=== PATIENT | female | born 1975 | race Caucasian/White ===

== ENCOUNTER → 2020-10-17 10:05 | Outpatient (BNVA) | payer BC, SELFPAY | PROVIDERS: Referring Provider Internal Medicine; Visit Provider Internal Medicine | DX: E03.9 Hypothyroidism, unspecified (principal); E04.9 Nontoxic goiter, unspecified; E06.3 Autoimmune thyroiditis | CPT/HCPCS: 99204 ==

== ENCOUNTER 2020-11-04 07:21 | Outpatient (CLI) | payer BC, SELFPAY ==
--- NOTE | 2020-11-04 07:15 | US_ITS ---
WS: [id number] ULTRASOUND THYROID TECHNIQUE: Ultrasound of the thyroid. CLINICAL INFORMATION: goiter, dysphagia COMPARISON: None. FINDINGS: Thyroid: Right and left thyroid lobes are normal in size with heterogeneous echotexture. No dominant thyroid nodules are present. Increased vascularity Right thyroid lobe: 3.9 cm x 1.2 cm x 1.6 cm Left thyroid lobe: 3.1 cm x 0.9 cm x 1.0 cm. Isthmus: 0.3 mm. Cervical lymphadenopathy: None. US/US thyroid 46702 IMPRESSION: 1. Heterogeneous thyroid echotexture with increased vascularity suspicious for thyroiditis. Recommend correlation with thyroid function studies. 2. No nodules to target for biopsy.
== END 2020-11-04 07:22 | disposition home or self-care (01) ==
LOC: US 07:23
PROVIDERS: PCP Internal Medicine; Visit Provider Internal Medicine
DX: E04.9 Nontoxic goiter, unspecified (principal); R13.10 Dysphagia, unspecified
CPT/HCPCS: 76536

== ENCOUNTER → 2021-02-05 09:05 | Outpatient (BNVA) | payer BC, SELFPAY | PROVIDERS: PCP Internal Medicine; Visit Provider Internal Medicine Rheumatology | DX: M19.041 Primary osteoarthritis, right hand (principal); M19.042 Primary osteoarthritis, left hand; Z79.899 Other long term (current) drug therapy; R76.8 Other specified abnormal immunological findings in serum; M79.7 Fibromyalgia | CPT/HCPCS: 99204 ==

== ENCOUNTER 2021-02-05 10:43 | Outpatient (CLI) | payer BC, SELFPAY ==
--- NOTE | 2021-02-05 10:50 | XR_ITS ---
WS: [id number] Exam: XR foot LT min 3V* [id number] Date/Time of Exam: 02/05/2021 11:00 AM Reason For Exam: Z79.899 - Other vermin exterminator (current) drug therapy No fracture or dislocation. There is been amputation of the distal end of the second toe. No soft tis analy foreign bodies are seen. XR/XR foot LT min 3V* [id number] IMPRESSION: 1. No fracture or bone destruction. 2. Amputation of the distal tip of the second toe.
--- NOTE | 2021-02-05 10:50 | XR_ITS ---
WS: [id number] Exam: XR hand LT min 3V* [id number] Date/Time of Exam: 02/05/2021 11:00 AM Reason For Exam: Z79.899 - Other bed bug exterminator (current) drug therapy Findings: No fractures, soft tissue swelling, or unusual calcifications are noted. The hand shows normal bony alignment. There is no irregularity of the bony architecture. XR/XR hand LT min 3V* [id number] IMPRESSION: Normal left hand.
--- NOTE | 2021-02-05 10:50 | XR_ITS ---
WS: [id number] Exam: XR foot RT min 3V* [id number] Date/Time of Exam: 02/05/2021 11:00 AM Reason For Exam: Z79.899 - Other custodial (current) drug therapy Findings: The foot was examined in multiple views and reveals no fractures or displacements of bone. No bony a nomalies are noted. The bony elements are in adequate alignment. The joint spaces are smooth and eq uidistant. XR/XR foot RT min 3V* [id number] IMPRESSION: Negative right foot.
--- NOTE | 2021-02-05 10:50 | XR_ITS ---
WS: [id number] Exam: XR hand RT min 3V* [id number] Date/Time of Exam: 02/05/2021 11:00 AM Reason For Exam: Z79.899 - Other intermodal customer service (current) drug therapy Findings: No fractures, soft tissue swelling, or unusual calcifications are noted. The hand shows normal bony alignment. There is no irregularity of the bony architecture. XR/XR hand RT min 3V* 17112 IMPRESSION: Normal right hand.
[2021-02-05 11:36] LABS: Basophils % 0.4 %; Eosinophils % 0.6 %; Hematocrit 45.4 % (37.0-47.0); Hemoglobin 14.6 g/dL (11.5-15.3); Lymphocytes # 1.7 10^3/uL (0.8-4.8); Lymphocytes % 32.8 %; Mean Corpuscular HGB Conc 32.2 g/dL (30.0-36.0); Mean Corpuscular Hemoglobin 29.7 pg (28.0-34.0); Mean Corpuscular Volume 92.5 fL (81-99); Mean Platelet Volume 9.6 fL (7.4-10.4); Monocytes # 0.3 10^3/uL (0.2-0.9); Neutrophils # 3.08 10^3/uL (1.8-7.7); Neutrophils % 59.8 %; Nucleated Red Blood Cells % 0 %; Platelet Count 264 10^3/cmm (130-400); Red Blood Count 4.91 10^6/uL (4.1-5.3); Red Cell Distribution Width 12.3 % (12.1-15.1); White Blood Count 5.2 10^3/uL (4.0-10.0)
[2021-02-05 12:03] LABS: Alanine Aminotransferase 45 U/L (0-33); Albumin Level 4.4 g/dL (3.5-5.2); Alkaline Phosphatase 83 IU/L (35-105); Aspartate Amino Transferase 29 U/L (0-32); C Reactive Protein 1.7 mg/L (0.0-4.9); Globulin 2.9 g/dL (1.3-4.6); Glomerular Filtration Rate 134.7 mL/min (90-130); Total Bilirubin 0.4 mg/dL (0.15-1.2); Total Protein 7.3 g/dL (6.6-8.7)
[2021-02-05 12:16] LABS: 25 Hydroxy Vitamin D 26 ng/mL (30-100)
[2021-02-05 13:30] LABS: Erythrocyte Sedimentation Rate 13 mm/hr (0-15)
== END 2021-02-05 10:44 | disposition home or self-care (01) ==
PROVIDERS: PCP Internal Medicine; Visit Provider Internal Medicine Rheumatology
DX: M19.90 Unspecified osteoarthritis, unspecified site (principal); Z79.899 Other long term (current) drug therapy
CPT/HCPCS: 36415; 73130; 73630; 80076; 82306; 82565; 85025; 85651; 86140

== ENCOUNTER → 2021-04-07 14:10 | Outpatient (BNVA) | payer BC, SELFPAY | PROVIDERS: PCP Internal Medicine; Visit Provider Internal Medicine Rheumatology | DX: M25.50 Pain in unspecified joint (principal); M19.041 Primary osteoarthritis, right hand; M19.042 Primary osteoarthritis, left hand; R76.8 Other specified abnormal immunological findings in serum; M79.7 Fibromyalgia | CPT/HCPCS: 99214 ==

== ENCOUNTER → 2021-07-21 14:03 | Outpatient (BNVA) | payer BC, SELFPAY | PROVIDERS: PCP Internal Medicine; Visit Provider Internal Medicine Rheumatology | DX: M35.05 Sjogren syndrome with inflammatory arthritis (principal); M19.041 Primary osteoarthritis, right hand; M19.042 Primary osteoarthritis, left hand; M79.7 Fibromyalgia; Z79.899 Other long term (current) drug therapy; Z71.85 Encounter for immunization safety counseling | CPT/HCPCS: 99214 ==

== ENCOUNTER 2021-07-21 15:25 | Outpatient (CLI) | payer BC, SELFPAY ==
[2021-07-21 15:42] LABS: Basophils % 0.7 %; Eosinophils # 0.1 10^3/uL (0.0-0.8); Hematocrit 46.1 % (37.0-47.0); Hemoglobin 14.9 g/dL (11.5-15.3); Lymphocytes # 2.1 10^3/uL (0.8-4.8); Lymphocytes % 35.9 %; Mean Corpuscular HGB Conc 32.3 g/dL (30.0-36.0); Mean Corpuscular Volume 92.8 fl (81-99); Monocytes # 0.4 10^3/uL (0.2-0.9); Monocytes % 6.4 %; Neutrophils # 3.23 10^3/uL (1.8-7.7); Neutrophils % 55.8 %; Nucleated Red Blood Cells % 0 %; Platelet Count 274 10^3/cmm (130-400); Red Blood Count 4.97 10^6/uL (4.1-5.3); Red Cell Distribution Width 12.4 % (12.1-15.1); White Blood Count 5.8 10^3/uL (4.0-10.0)
[2021-07-21 16:06] LABS: Alanine Aminotransferase 20 U/L (0-33); Albumin Level 4.4 g/dL (3.5-5.2); Alkaline Phosphatase 77 IU/L (35-105); Aspartate Amino Transferase 19 U/L (0-32); C Reactive Protein 0.6 mg/L (0.0-4.9); Glomerular Filtration Rate 68.3 mL/min (90-130); Total Bilirubin 0.3 mg/dL (0.15-1.2); Total Protein 7.4 g/dL (6.6-8.7)
== END 2021-07-21 15:26 | disposition home or self-care (01) ==
LOC: LAB 15:27
PROVIDERS: PCP Internal Medicine; Visit Provider Internal Medicine Rheumatology
DX: M19.90 Unspecified osteoarthritis, unspecified site (principal); Z79.899 Other long term (current) drug therapy
CPT/HCPCS: 36415; 80076; 82565; 85025; 86140

== ENCOUNTER 2021-11-18 14:46 | Outpatient (CLI) | payer BC, SELFPAY ==
[2021-11-18 16:14] LABS: Basophils % 0.6 %; Eosinophils # 0.1 10^3/uL (0.0-0.8); Eosinophils % 1.8 %; Hematocrit 41.8 % (37.0-47.0); Hemoglobin 13.5 g/dL (11.5-15.3); Lymphocytes # 1.7 10^3/uL (0.8-4.8); Lymphocytes % 33.6 %; Mean Corpuscular HGB Conc 32.3 g/dL (30.0-36.0); Mean Corpuscular Hemoglobin 30.8 pg (28.0-34.0); Mean Corpuscular Volume 95.2 fl (81-99); Monocytes # 0.4 10^3/uL (0.2-0.9); Monocytes % 7.7 %; Neutrophils # 2.77 10^3/uL (1.8-7.7); Neutrophils % 56.1 %; Nucleated Red Blood Cells % 0 %; Platelet Count 284 10^3/cmm (130-400); Red Blood Count 4.39 10^6/uL (4.1-5.3); White Blood Count 4.9 10^3/uL (4.0-10.0)
[2021-11-18 16:57] LABS: 25 Hydroxy Vitamin D 31 ng/mL (30-100); Alanine Aminotransferase 38 U/L (0-33); Albumin Level 4.4 g/dL (3.5-5.2); Alkaline Phosphatase 79 IU/L (35-105); Aspartate Amino Transferase 28 U/L (0-32); Globulin 2.8 g/dL (1.3-4.6); Glomerular Filtration Rate 108.6 mL/min (90-130); Thyroid Stimulating Hormone 2.02 uIU/mL (0.27-4.20); Total Bilirubin 0.2 mg/dL (0.15-1.2); Total Protein 7.2 g/dL (6.6-8.7); Vitamin B12 662 pg/mL (232-1245)
[2021-11-18 20:21] LABS: Free T4 Free Thyroxine 1.12 ng/dL (0.82-1.77)
== END 2021-11-18 14:47 | disposition home or self-care (01) ==
PROVIDERS: PCP Internal Medicine; Visit Provider Internal Medicine Rheumatology
DX: Z79.899 Other long term (current) drug therapy (principal); E03.8 Other specified hypothyroidism; E06.3 Autoimmune thyroiditis; M35.05 Sjogren syndrome with inflammatory arthritis
CPT/HCPCS: 80076; 82306; 82565; 82607; 84439; 84443; 85025; 86140

== ENCOUNTER → 2024-05-09 10:12 | Outpatient (BNVA) | payer BC, SELFPAY | PROVIDERS: PCP Internal Medicine; Visit Provider Internal Medicine Rheumatology | DX: Z79.899 Other long term (current) drug therapy (principal); M35.05 Sjogren syndrome with inflammatory arthritis | CPT/HCPCS: 36415; 80076; 82565; 85025; 85651; 86140 ==

== ENCOUNTER 2024-06-23 10:55 | Outpatient (CLI) | payer BC, SELFPAY ==
--- NOTE | 2024-06-23 11:01 | XR_ITS ---
WS: [id number] XR sacroiliac jts m 3V 59279 REASON FOR EXAM: Z79.899 - Other termination clerk (current) drug therapy FINDINGS: Sacrum intact. Sacroiliac joints are well-defined without bridging or fusion. No erosive changes noted. Thin sclerotic margins. XR/XR sacroiliac jts m 3V 57114 IMPRESSION: No findings of sacroiliitis.
[2024-06-23 11:19] LABS: Erythrocyte Sedimentation Rate 1 mm/hr (0-15)
[2024-06-23 11:39] LABS: C Reactive Protein 3.3 mg/L (0.0-4.9)
[2024-06-26 14:05] LABS: HLA-B27 NEGATIVE (NEGATIVE)
== END 2024-06-23 10:56 | disposition home or self-care (01) ==
LOC: RAD 10:56
PROVIDERS: PCP Internal Medicine; Visit Provider Internal Medicine Rheumatology
DX: Z79.899 Other long term (current) drug therapy (principal); M19.90 Unspecified osteoarthritis, unspecified site; M45.6 Ankylosing spondylitis lumbar region
CPT/HCPCS: 36415; 72202; 85651; 86140; 86812

== ENCOUNTER → 2025-03-22 11:58 | Outpatient (BNVA) | payer BC, SELFPAY | PROVIDERS: PCP Internal Medicine; Visit Provider Internal Medicine Rheumatology | DX: M06.00 Rheumatoid arthritis without rheumatoid factor, unspecified site (principal); M35.05 Sjogren syndrome with inflammatory arthritis; Z79.899 Other long term (current) drug therapy | CPT/HCPCS: 36415; 80076; 82306; 82565; 85025; 85651; 86140; 86480; 86704; 86803; 87340 ==

== ENCOUNTER → 2025-07-17 16:06 | Outpatient (BNVA) | payer BC, SELFPAY | PROVIDERS: PCP Internal Medicine; Visit Provider Internal Medicine Rheumatology | DX: M54.2 Cervicalgia (principal); M19.90 Unspecified osteoarthritis, unspecified site; M35.05 Sjogren syndrome with inflammatory arthritis; Z79.899 Other long term (current) drug therapy | CPT/HCPCS: 36415; 72040; 80076; 82565; 85025; 85651; 86140 ==